=== PATIENT | male | born 1960 | race African-American/Black ===

== ENCOUNTER 2016-11-15 15:07 | Inpatient (IN) | payer OTHER ==
[2016-11-15 19:41] VITALS: BMI 22.1
--- NOTE | 2016-11-15 21:27 | HP ---
COWS - Scale Resting Pulse: 0= ME 80 or Below Sweatin= Chills/Flushing Restless Observation: 3= Extraneous Movement Pupil Size: 0= Normal to Room Light Bone or Joint Aches: 2= Severe Diffuse Aches Runny Nose/ Eye Tearin= Runny Nose/Eyes GI Upset > 30mins: 2= Nausea/Diarrhea Tremor Observation: 2= Slight Tremor Visible Yawning Observation: 0= None Anxiety or Irritability: 2=Irritable/Anxious Goose Flesh Skin: 0=Smooth Skin COWS Score: 14 CIWA Score - CIWA Score Nausea/Vomitin-Mild Nausea/No Vomiting Muscle Tremors: 4-Moderate,w/Arms Extend Anxiety: 4-Mod. Anxious/Guarded Agitation: 4-Moderately Restless Paroxysmal Sweats: 1-Minimal Palms Moist Orientation: 1-Uncertain about Date Tacttile Disturbances: 0-None Auditory Disturbances: 0-None Visual Disturbances: 0-None Headache: 0-None Present CIWA-Ar Total Score: 15 Admission [facility] - HPI Chief Complaint: withdrawal sx Allergies/Adverse Reactions: Allergies Allergy/AdvReac Type Severity Reaction Status Date / Time phenytoin sodium Allergy Hives Verified 11/15/16 20:26 [From Dilantin] phenytoin sodium extended Allergy Hives Verified 11/15/16 20:26 [From Dilantin] History of Present Illness: 56 years old male with long history of alcohol heroin nicotine cocaine dependence has hypertension depression blind right eye and herpes is admitted to detox Exam Limitations: No Limitations - Ebola screening Have you traveled outside of the country in the last 21 days: No Have you had contact with anyone from an Ebola affected area: No Have you been sick,other than usual withdrawal symptoms: No Do you have a fever: No - Review of Systems Constitutional: Loss of Appetite, Changes in sleep, Unintentional Wgt. Loss, Unexplained wgt Loss EENT: reports: Other (blind right eye) Respiratory: reports: No Symptoms reported Cardiac: reports: No Symptoms Reported GI: reports: Nausea, Poor Appetite, Poor Fluid Intake, Abdominal cramping : reports: No Symptoms Reported Musculoskeletal: reports: Back Pain Integumentary: reports: No Symptoms Reported Neuro: reports: Seizure (2006 seizure), Tremors Endocrine: reports: No Symptoms Reported Hematology: reports: No Symptoms Reported Psychiatric: reports: Judgement Intact, Anxious, Depressed Other Systems: Reviewed and Negative Patient History - Patient Medical History Hx Anemia: No Hx Asthma: No Hx Chronic Obstructive Pulmonary Disease (COPD): No Hx Cancer: No Hx Cardiac Disorders: No Hx Congestive Heart Failure: No Hx Hypertension: No Hx Hypercholesterolemia: No Hx Pacemaker: No HX Cerebrovascular Accident: No Hx Seizures: Yes (Last Episode 10/26) Hx Dementia: No Hx Diabetes: No Hx Gastrointestinal Disorders: No Hx Liver Disease: No Hx Genitourinary Disorders: No Hx Sexually Transmitted Disorders: Yes (hepes) Hx Renal Disease (ESRD): No Hx Thyroid Disease: No Hx Human Immunodeficiency Virus (HIV): No Hx Hepatitis C: No Hx Depression: No Hx Suicide Attempt: No Hx Bipolar Disorder: Yes Hx Schizophrenia: No - Patient Surgical History Past Surgical History: No Hx Neurologic Surgery: No Hx Cataract Extraction: No Hx Cardiac Surgery: No Hx Lung Surgery: No Hx Breast Surgery: No Hx Breast Biopsy: No Hx Abdominal Surgery: No Hx Appendectomy: No Hx Cholecystectomy: No Hx Genitourinary Surgery: No Hx Orthopedic Surgery: No (wrist s/p suicide attempt) Other Surgical History: eye 1970, Anesthesia Reaction: No - PPD History Previous Implant?: Yes Documented Results: Negative w/proof Implanted On Prior R Admission?: Yes Date: 01/08/14 PPD to be Administered?: Yes - Smoking Cessation Smoking history: Current every day smoker Have you smoked in the past 12 months: Yes Aproximately how many cigarettes per day: 5 If you are a former smoker, when did you quit?: 30 DAYS AGO Cigars Per Day: 0 Hx Chewing Tobacco Use: No Initiated information on smoking cessation: Yes 'Breaking Loose' booklet given: 11/15/16 - Substance & Tx. History Hx Alcohol Use: Yes Hx Substance Use: Yes Substance Use Type: Alcohol, Cocaine, Heroin Hx Substance Use Treatment: Yes (2013 [facility]) - Substances Abused Alcohol Route: Oral Frequency: Daily Amount used: liquor- 2 pints, beer- 3 six pack Age of first use: 14 Date of Last Use: 11/15/16 Heroin Route: Inhalation Frequency: Daily Amount used: 15 bags Age of first use: 33 Date of Last Use: 11/14/16 Family Disease History - Family Disease History Family Disease History: Other: Father (no contact), Mother (/alcohol) Admission Physical Exam [facility] - Vital Signs Vital Signs: Vital Signs - 24 hr 11/15/16 19:36 Temperature 99.2 F Pulse Rate 77 Respiratory 20 Rate Blood Pressure 148/80 - Physical General Appearance: Yes: Appropriately Dressed, Mild Distress, Thin, Tremorous, Irritable, Sweating, Anxious HEENTM: Yes: Hearing grossly Normal, Normal ENT Inspection, Normocephalic, Normal Voice Respiratory: Yes: Chest Non-Tender, Lungs Clear, Normal Breath Sounds, No Respiratory Distress, No Accessory Muscle Use Neck: Yes: Supple, Trachea in good position Breast: Yes: Breasts Symetrical Cardiology: Yes: Regular Rhythm, Regular Rate, S1, S2 Abdominal: Yes: Non Tender, Soft, Increased Bowel Sounds Genitourinary: Yes: Within Normal Limits Back: Yes: Normal Inspection Musculoskeletal: Yes: full range of Motion, Gait Steady Extremities: Yes: Normal Inspection, Normal Range of Motion, Non-Tender, Tremors Neurological: Yes: survey supervisor II-XII NML intact, Alert, Motor Strength 5/5, Normal Response, Depressed Affect Integumentary: Yes: Warm Lymphatic: Yes: Within Normal Limits - Diagnostic (1) Blind right eye Current Visit: Yes Status: Chronic (2) Essential (primary) hypertension Current Visit: Yes Status: Chronic (3) Nicotine dependence Current Visit: Yes Status: Acute Qualifiers: Nicotine product type: cigarettes Substance use status: in withdrawal Qualified Code(s): F17.213 - Nicotine dependence, cigarettes, with withdrawal; F17.213 - Nicotine dependence, cigarettes, with withdrawal (4) Opioid dependence with withdrawal Current Visit: Yes Status: Acute (5) Alcohol dependence with uncomplicated withdrawal Current Visit: Yes Status: Acute Cleared for Admission [facility] - Detox or Rehab [facility] Level of Care: Medically Managed Detox Regimen/Protocol: Methadone/Librium [facility] Breath Alcohol Content Breath Alcohol Content: 0.022 Urine Drug Screen - Results Drug Screen Negative: No Urine Drug Screen Results: KLAUDIA-Cocaine, OPI-Opiates
[2016-11-15] MEDS ORDERED: MAGNESIUM HYDROX 2400MG/30ML ORAL SUSPENSION 30 ML CUP PO PRN (21:31)
[2016-11-15] MEDS ORDERED: MAG HYDROX/AL HYDROX/SIMETH 30 ML UNIT-DOSE CUP PO PRN (21:31)
[2016-11-15] MEDS ORDERED: diphenhydrAMINE HCL 50 MG CAPSULE PO PRN (21:31)
[2016-11-15] MEDS ORDERED: NICOTINE POLACRILEX 2 MG GUM BC PRN (21:31)
[2016-11-15] MEDS ORDERED: LOPERAMIDE HCL 2 MG CAPSULE PO PRN (21:31)
[2016-11-15] MEDS ORDERED: MENTHOL/PHENOL 1 EACH UD MM PRN (21:31)
[2016-11-15] MEDS ORDERED: MAGNESIUM CITRATE 300 ML BOTTLE PO PRN (21:31)
[2016-11-15] MEDS ORDERED: ACETAMINOPHEN 325 MG TABLET (FP) PO PRN (21:31)
[2016-11-15] MEDS ORDERED: P-EPHED 60MG/TRIPROLIDI 2.5MG TABLET PO PRN (21:31)
[2016-11-15] MEDS ORDERED: chlordiazePOXIDE HCL 25 MG CAPSULE PO PRN ×2 (21:31→23:15)
[2016-11-15] MEDS ORDERED: guaiFENesin/D-METHORPHAN HB 10 ML UNIT-DOSE CUPS PO PRN (21:31)
[2016-11-15] MEDS: THIAMINE HCL 100 MG TABLET (FP) PO SCH (22:58)
[2016-11-15] MEDS ORDERED: chlordiazePOXIDE HCL 25 MG CAPSULE PO SCH (23:00)
[2016-11-15] MEDS ORDERED: METHADONE HCL 10 MG TABLET (FOR DETOX USE ONLY) PO ONE ×2 (23:00→23:15)
[2016-11-15] MEDS: chlordiazePOXIDE HCL 25 MG CAPSULE PO SCH (23:20)
[2016-11-16] MEDS: chlordiazePOXIDE HCL 25 MG CAPSULE PO SCH ×4 (05:10→22:48)
[2016-11-16] MEDS ORDERED: METHADONE HCL 10 MG TABLET (FOR DETOX USE ONLY) PO SCH (10:00)
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
[2016-11-16 10:16] LABS: MCH 32.8 pg (25.7-33.7); MCHC 33.3 g/dl (32.0-35.9); MEAN CELL VOLUME 98.6 fl (80-96); MEAN PLT VOLUME 9.2 fl (7.5-11.1); PLATELET COUNT 162 K/MM3 (134-434); RDW 12.3 % (11.9-15.9); WHITE BLOOD COUNT 4.7 K/mm3 (4.0-10.0)
[2016-11-16] MEDS: valACYclovir HCL 500 MG TABLET (FP) PO SCH (10:23)
[2016-11-16] MEDS: amLODIPine BESYLATE 10 MG TABLET (FP) PO SCH (10:23)
[2016-11-16] MEDS: HYDROCHLOROTHIAZIDE 25 MG TABLET (FP) PO SCH (10:23)
[2016-11-16] MEDS: NICOTINE 14 MG/24 HOURS TOPICAL PATCH TD SCH (10:23)
[2016-11-16] MEDS: PRENATAL VITAMINS W/ FOLIC ACID TABLET (FP) PO SCH (10:23)
[2016-11-16] MEDS: LISINOPRIL 20 MG TABLET (FP) PO SCH (10:23)
[2016-11-16] MEDS: ASPIRIN 81 MG CHEWABLE TABLETS PO SCH (10:23)
[2016-11-16 10:59] LABS: ALBUMIN 3.4 g/dl (3.4-5.0); ALK PHOS 71 U/L (45-117); ANION GAP 7 (8-16); BILIRUBIN,TOTAL 0.5 mg/dL (0.2-1.0); CALCIUM 8.6 mg/dL (8.5-10.1); CO2 32 mmol/L (21-32); CREATININE 2.7 mg/dL (0.7-1.3); GLUCOSE,RANDOM 89 mg/dL (74-106); SGOT/AST 16 U/L (15-37); SGPT/ALT 14 U/L (12-78)
--- NOTE | 2016-11-16 11:41 | PN ---
[facility] CIWA - CIWA Score Nausea/Vomitin-No Nausea/No Vomiting Muscle Tremors: 4-Moderate,w/Arms Extend Anxiety: 4-Mod. Anxious/Guarded Agitation: 4-Moderately Restless Paroxysmal Sweats: 1-Minimal Palms Moist Orientation: 0-Oriented Tacttile Disturbances: 3-Moderate Itch/Numb/Burn Auditory Disturbances: 0-None Visual Disturbances: 0-None Headache: 0-None Present CIWA-Ar Total Score: 16 [facility] COWS - Scale Resting Pulse: 2= [place] 101-120 Sweatin= Chills/Flushing Restless Observation: 3= Extraneous Movement Pupil Size: 0= Normal to Room Light Bone or Joint Aches: 4=Acute Joint/Muscle Pain Runny Nose/ Eye Tearin= Nasal Congestion GI Upset > 30mins: 1= Stomach Cramp Tremor Observation of Outstretched Hands: 1= Tremor Page, Not Seen Yawning Observation: 1= 1-2x During Session Anxiety or Irritability: 1=Feels Anxious/Irritable Goose Flesh Skin: 0=Smooth Skin COWS Score: 15 [facility] Progress Note (SOAP) Subjective: ANXIETY,TREMORS,SWEATS,FATIGUE. Objective: 11/16/16 11:40 Vital Signs Temperature 97.9 F 11/16/16 09:03 Pulse Rate 65 11/16/16 09:03 Respiratory Rate 18 11/16/16 09:03 Blood Pressure 137/86 11/16/16 09:03 O2 Sat by Pulse Oximetry (%) Laboratory Last Values WBC 4.7 K/mm3 (4.0-10.0) 11/16/16 07:15 RBC 3.61 M/mm3 (4.00-5.60) L 11/16/16 07:15 Hgb 11.8 GM/dL (11.7-16.9) 11/16/16 07:15 Hct 35.6 % (35.4-49) 11/16/16 07:15 MCV 98.6 fl (80-96) H 11/16/16 07:15 MCH 32.8 pg (25.7-33.7) 11/16/16 07:15 MCHC 33.3 g/dl (32.0-35.9) 11/16/16 07:15 RDW 12.3 % (11.9-15.9) 11/16/16 07:15 Plt Count 162 K/MM3 (134-434) D 11/16/16 07:15 MPV 9.2 fl (7.5-11.1) D 11/16/16 07:15 Sodium 140 mmol/L (136-145) 11/16/16 07:15 Potassium 3.1 mmol/L (3.5-5.1) L 11/16/16 07:15 Chloride 101 mmol/L (98-107) 11/16/16 07:15 Carbon Dioxide 32 mmol/L (21-32) 11/16/16 07:15 Anion Gap 7 (8-16) L 11/16/16 07:15 BUN 41 mg/dL (7-18) H 11/16/16 07:15 Creatinine 2.7 mg/dL (0.7-1.3) H D 11/16/16 07:15 Creat Clearance w eGFR 24.39 (>60) 11/16/16 07:15 Random Glucose 89 mg/dL (74-106) 11/16/16 07:15 Calcium 8.6 mg/dL (8.5-10.1) 11/16/16 07:15 Total Bilirubin 0.5 mg/dL (0.2-1.0) D 11/16/16 07:15 AST 16 U/L (15-37) 11/16/16 07:15 ALT 14 U/L (12-78) D 11/16/16 07:15 Alkaline Phosphatase 71 U/L (45-117) 11/16/16 07:15 Total Protein 7.0 g/dl (6.4-8.2) 11/16/16 07:15 Albumin 3.4 g/dl (3.4-5.0) 11/16/16 07:15 Assessment: 11/16/16 11:41 WITHDRAWAL SX Plan: CONTINUE DETOX
[2016-11-16 11:49] LABS: HIV 1 & 2 AB NEGATIVE; HIV 1 AGp24 NEGATIVE
--- NOTE | 2016-11-16 14:20 | EKG ---
Test Reason : Blood Pressure : / mmHG Vent. Rate : 079 BPM Atrial Rate : 079 BPM P-R Int : 144 ms QRS Dur : 106 ms QT Int : 400 ms P-R-T Axes : 070 057 033 degrees QTc Int : 458 ms NORMAL SINUS RHYTHM POSSIBLE LEFT ATRIAL ENLARGEMENT INCOMPLETE RIGHT BUNDLE BRANCH BLOCK LEFT VENTRICULAR HYPERTROPHY NONSPECIFIC ST ABNORMALITY ABNORMAL ECG WHEN COMPARED WITH ECG OF 18-JAN-2014 10:25, INCOMPLETE RIGHT BUNDLE BRANCH BLOCK IS NOW PRESENT T WAVE INVERSION NO LONGER EVIDENT IN LATERAL LEADS Confirmed by JUAN MANUEL ALCANTARA MD ([id number]) on 11/16/2016 2:20:14 PM Referred By: Confirmed By:JUAN MANUEL ALCANTARA MD
[2016-11-16 22:12] LABS: URINE APPEARANCE CLEAR; URINE BILIRUBIN NEGATIVE (NEGATIVE); URINE BLOOD NEGATIVE (NEGATIVE); URINE COLOR STRAW; URINE GLUCOSE (UA) NEGATIVE (NEGATIVE); URINE KETONE NEGATIVE (NEGATIVE); URINE NITRITE NEGATIVE (NEGATIVE); URINE PROTEIN NEGATIVE (NEGATIVE); URINE UROBILINOGEN NEGATIVE mg/dL (0.2-1.0)
[2016-11-16] MEDS: THIAMINE HCL 100 MG TABLET (FP) PO SCH (22:48)
[2016-11-16] MEDS: QUEtiapine FUMARATE 50 MG TABLET PO SCH (22:48)
[2016-11-16] MEDS ORDERED: chlordiazePOXIDE HCL 25 MG CAPSULE PO SCH (23:00)
[2016-11-16 23:14] LABS: URINE LEUK ESTERASE Negative (NEGATIVE)
[2016-11-17] MEDS: chlordiazePOXIDE HCL 25 MG CAPSULE PO SCH ×3 (05:21→18:22)
[2016-11-17] MEDS: METHADONE HCL 5 MG TABLET (FOR DETOX USE ONLY) PO SCH (10:30)
[2016-11-17] MEDS: ASPIRIN 81 MG CHEWABLE TABLETS PO SCH (10:30)
[2016-11-17] MEDS: PRENATAL VITAMINS W/ FOLIC ACID TABLET (FP) PO SCH (10:30)
[2016-11-17] MEDS: NICOTINE 14 MG/24 HOURS TOPICAL PATCH TD SCH (10:31)
[2016-11-17] MEDS: amLODIPine BESYLATE 10 MG TABLET (FP) PO SCH (10:31)
[2016-11-17] MEDS: LISINOPRIL 20 MG TABLET (FP) PO SCH (10:31)
[2016-11-17] MEDS: valACYclovir HCL 500 MG TABLET (FP) PO SCH (10:31)
[2016-11-17] MEDS: HYDROCHLOROTHIAZIDE 25 MG TABLET (FP) PO SCH (10:31)
--- NOTE | 2016-11-17 12:26 | PN ---
[facility] CIWA - CIWA Score Nausea/Vomitin-No Nausea/No Vomiting Muscle Tremors: 4-Moderate,w/Arms Extend Anxiety: 4-Mod. Anxious/Guarded Agitation: 4-Moderately Restless Paroxysmal Sweats: 1-Minimal Palms Moist Orientation: 0-Oriented Tacttile Disturbances: 3-Moderate Itch/Numb/Burn Auditory Disturbances: 0-None Visual Disturbances: 0-None Headache: 0-None Present CIWA-Ar Total Score: 16 S COWS - Scale Resting Pulse: 2= [place] 101-120 Sweatin= Chills/Flushing Restless Observation: 3= Extraneous Movement Pupil Size: 2= Moderately Dilated Bone or Joint Aches: 4=Acute Joint/Muscle Pain Runny Nose/ Eye Tearin= Nasal Congestion GI Upset > 30mins: 1= Stomach Cramp Tremor Observation of Outstretched Hands: 2= Slight Tremor Visible Yawning Observation: 2= >3x During Session Anxiety or Irritability: 2=Irritable/Anxious Goose Flesh Skin: 0=Smooth Skin COWS Score: 20 S Progress Note (SOAP) Subjective: ANXIETY,SWEATS,TREMORS,FATIGUE,INTERMITTENT SLEEP Objective: 11/17/16 12:23 Vital Signs Temperature 97.5 F L 11/17/16 09:56 Pulse Rate 61 11/17/16 09:56 Respiratory Rate 18 11/17/16 09:56 Blood Pressure 157/98 11/17/16 09:56 O2 Sat by Pulse Oximetry (%) Laboratory Last Values WBC 4.7 K/mm3 (4.0-10.0) 11/16/16 07:15 RBC 3.61 M/mm3 (4.00-5.60) L 11/16/16 07:15 Hgb 11.8 GM/dL (11.7-16.9) 11/16/16 07:15 Hct 35.6 % (35.4-49) 11/16/16 07:15 MCV 98.6 fl (80-96) H 11/16/16 07:15 MCH 32.8 pg (25.7-33.7) 11/16/16 07:15 MCHC 33.3 g/dl (32.0-35.9) 11/16/16 07:15 RDW 12.3 % (11.9-15.9) 11/16/16 07:15 Plt Count 162 K/MM3 (134-434) D 11/16/16 07:15 MPV 9.2 fl (7.5-11.1) D 11/16/16 07:15 Sodium 140 mmol/L (136-145) 11/16/16 07:15 Potassium 3.1 mmol/L (3.5-5.1) L 11/16/16 07:15 Chloride 101 mmol/L (98-107) 11/16/16 07:15 Carbon Dioxide 32 mmol/L (21-32) 11/16/16 07:15 Anion Gap 7 (8-16) L 11/16/16 07:15 BUN 41 mg/dL (7-18) H 11/16/16 07:15 Creatinine 2.7 mg/dL (0.7-1.3) H D 11/16/16 07:15 Creat Clearance w eGFR 24.39 (>60) 11/16/16 07:15 Random Glucose 89 mg/dL (74-106) 11/16/16 07:15 Calcium 8.6 mg/dL (8.5-10.1) 11/16/16 07:15 Total Bilirubin 0.5 mg/dL (0.2-1.0) D 11/16/16 07:15 AST 16 U/L (15-37) 11/16/16 07:15 ALT 14 U/L (12-78) D 11/16/16 07:15 Alkaline Phosphatase 71 U/L (45-117) 11/16/16 07:15 Total Protein 7.0 g/dl (6.4-8.2) 11/16/16 07:15 Albumin 3.4 g/dl (3.4-5.0) 11/16/16 07:15 Urine Color Straw 11/16/16 21:30 Urine Appearance Clear 11/16/16 21:30 Urine pH 5.0 (5.0-8.0) D 11/16/16 21:30 Ur Specific [place] 1.015 (1.005-1.025) 11/16/16 21:30 Urine Protein Negative (NEGATIVE) 11/16/16 21:30 Urine Glucose (UA) Negative (NEGATIVE) 11/16/16 21:30 Urine Ketones Negative (NEGATIVE) 11/16/16 21:30 Urine Blood Negative (NEGATIVE) 11/16/16 21:30 Urine Nitrite Negative (NEGATIVE) 11/16/16 21:30 Urine Bilirubin Negative (NEGATIVE) 11/16/16 21:30 Urine Urobilinogen Negative mg/dL (0.2-1.0) 11/16/16 21:30 Ur Leukocyte Esterase Negative (NEGATIVE) 11/16/16 21:30 RPR Titer Nonreactive (NONREACTIVE) 11/16/16 07:15 HIV 1&2 Antibody Screen Negative 11/16/16 07:15 HIV P24 Antigen Negative 11/16/16 07:15 K+ = 3.1 Assessment: 11/17/16 12:24 WITHDRAWAL SX HYPOKALEMIA Plan: CONTINUE DETOX KDUR 20 MEQ PO BID, FIRST DOSE NOW.
[2016-11-17] MEDS ORDERED: POTASSIUM CHLORIDE TABS 20 MEQ TABLET.ER (FP) PO ONE (12:48)
[2016-11-17] MEDS ORDERED: TRIMETHOBENZAMIDE HCL 200MG/2ML INJ IM PRN (20:33)
[2016-11-17] MEDS: chlordiazePOXIDE 5 MG CAPSULE PO SCH (22:29)
[2016-11-17] MEDS: THIAMINE HCL 100 MG TABLET (FP) PO SCH (22:29)
[2016-11-17] MEDS: QUEtiapine FUMARATE 50 MG TABLET PO SCH (22:30)
[2016-11-17] MEDS: POTASSIUM CHLORIDE TABS 20 MEQ TABLET.ER (FP) PO SCH (22:30)
[2016-11-17] MEDS ORDERED: chlordiazePOXIDE 5 MG CAPSULE PO SCH (23:00)
[2016-11-18] MEDS: chlordiazePOXIDE 5 MG CAPSULE PO SCH (05:11)
[2016-11-18] MEDS: PRENATAL VITAMINS W/ FOLIC ACID TABLET (FP) PO SCH (09:34)
[2016-11-18] MEDS: NICOTINE 14 MG/24 HOURS TOPICAL PATCH TD SCH (09:34)
[2016-11-18] MEDS: ASPIRIN 81 MG CHEWABLE TABLETS PO SCH (09:35)
[2016-11-18] MEDS: valACYclovir HCL 500 MG TABLET (FP) PO SCH (09:35)
[2016-11-18] MEDS: HYDROCHLOROTHIAZIDE 25 MG TABLET (FP) PO SCH (09:35)
[2016-11-18] MEDS: METHADONE HCL 5 MG TABLET (FOR DETOX USE ONLY) PO SCH (09:35)
[2016-11-18] MEDS: POTASSIUM CHLORIDE TABS 20 MEQ TABLET.ER (FP) PO SCH (09:35)
[2016-11-18] MEDS: LISINOPRIL 20 MG TABLET (FP) PO SCH (09:35)
[2016-11-18 09:36] VITALS: BP 117/92; PULSE 76; TEMP 97.2
[2016-11-18] MEDS: amLODIPine BESYLATE 10 MG TABLET (FP) PO SCH (09:36)
--- NOTE | 2016-11-18 15:05 | DS ---
[facility] Detox Discharge Summary Admission Date: 11/15/16 Discharge Date: 11/18/16 - History Present History: Alcohol Dependence, Opioid Dependence Additional Comments: PATIENT DOES NOT WISH TO STAY TO COMPLETE DETOX REGIMEN. RISKS OF NOT COMPLETING DETOX PROTOCOL EXPLAINED TO PATIENT. PATIENT ADVISED TO FOLLOW-UP WITH [employer] COMMISSIONER (PT. UNABLE TO RECALL U.S. COMMISSIONER'S NAME) ON [address] [place] [address] FOR MEDICAL ASSESSMENT. PRESCRIPTION FOR K-DUR, 20 MEQ DAILY GIVEN TO PATIENT FOR HIM TO TAKE AFTER LEAVING DETOX UNIT UNTIL HE IS ABLE TO GET TO SEE HIS [employer] COMMISSIONER. PT ALSO ADVISED TO GO IMMEDIATELY TO NEAREST ER SHOULD ANY INTOLERABLE DETOX SYMPTOMS DEVELOP AT ANY TIME. PATIENT LEFT DETOX UNIT IN STABLE MEDICAL CONDITION. Pertinent Past History: HTN, Bipolar Disorder, Blindness of Right Eye, Schizoaffective Disorder. - Physical Exam Results Vital Signs: Vital Signs Temperature 97.2 F L 11/18/16 09:35 Pulse Rate 76 11/18/16 09:35 Respiratory Rate 18 11/18/16 09:35 Blood Pressure 117/92 11/18/16 09:35 O2 Sat by Pulse Oximetry (%) Pertinent Admission Physical Exam Findings: WITHDRAWAL SYMPTOMS. Laboratory Tests 11/16/16 11/16/16 11/16/16 07:15 07:15 07:15 WBC 4.7 RBC 3.61 L Hgb 11.8 Hct 35.6 MCV 98.6 H MCH 32.8 MCHC 33.3 RDW 12.3 Plt Count 162 D MPV 9.2 D Sodium 140 Potassium 3.1 L Chloride 101 Carbon Dioxide 32 Anion Gap 7 L BUN 41 H Creatinine 2.7 H D Creat Clearance w eGFR 24.39 Random Glucose 89 Calcium 8.6 Total Bilirubin 0.5 D AST 16 ALT 14 D Alkaline Phosphatase 71 Total Protein 7.0 Albumin 3.4 Urine Color Urine Appearance Urine pH Ur Specific [place] Urine Protein Urine Glucose (UA) Urine Ketones Urine Blood Urine Nitrite Urine Bilirubin Urine Urobilinogen Ur Leukocyte Esterase RPR Titer HIV 1&2 Antibody Screen Negative HIV P24 Antigen Negative 11/16/16 11/16/16 07:15 21:30 WBC RBC Hgb Hct MCV MCH MCHC RDW Plt Count MPV Sodium Potassium Chloride Carbon Dioxide Anion Gap BUN Creatinine Creat Clearance w eGFR Random Glucose Calcium Total Bilirubin AST ALT Alkaline Phosphatase Total Protein Albumin Urine Color Straw Urine Appearance Clear Urine pH 5.0 D Ur Specific [place] 1.015 Urine Protein Negative Urine Glucose (UA) Negative Urine Ketones Negative Urine Blood Negative Urine Nitrite Negative Urine Bilirubin Negative Urine Urobilinogen Negative Ur Leukocyte Esterase Negative RPR Titer Nonreactive HIV 1&2 Antibody Screen HIV P24 Antigen LABS NOTED. - Treatment Hospital Course: Detoxed Safely - Medication Discharge Medications: Ambulatory Orders Amlodipine Besylate [Norvasc -] 10 mg PO DAILY 01/06/14 Nicotine Patch [Nicoderm Patch -] 1 patch TD DAILY 01/18/14 Gabapentin 100 mg PO TID #90 capsule 02/02/14 Lisinopril [Prinivil] 20 mg PO DAILY #30 tablet 02/02/14 Quetiapine Fumarate [Seroquel -] 50 mg PO HS #30 tablet 11/16/16 Aspirin [ASA -] 81 mg PO DAILY #30 tab.chew 11/18/16 Hydrochlorothiazide [Hctz -] 25 mg PO DAILY #30 tablet 11/18/16 Potassium Chloride [K-Dur -] 20 meq PO DAILY #30 tablet.er 11/18/16 - Diagnosis (1) Alcohol dependence with uncomplicated withdrawal Status: Acute (2) Nicotine dependence Status: Chronic Qualifiers: Nicotine product type: cigarettes Substance use status: in withdrawal Qualified Code(s): F17.213 - Nicotine dependence, cigarettes, with withdrawal; F17.213 - Nicotine dependence, cigarettes, with withdrawal (3) Opioid dependence with withdrawal Status: Acute (4) Blind right eye Status: Chronic (5) Essential (primary) hypertension Status: Chronic (6) Schizoaffective disorder Status: Chronic Qualifiers: Schizoaffective disorder type: unspecified Qualified Code(s): F25.9 - Schizoaffective disorder, unspecified; F25.9 - Schizoaffective disorder, unspecified; F25.9 - Schizoaffective disorder, unspecified; F25.9 - Schizoaffective disorder, unspecified - AMA Did Patient Leave Against Medical Advice: Yes (PATIENT DID NOT WISH TO STAY TO COMPLETE DETOX REGIMEN.)
[2016-11-18] MEDS ORDERED: chlordiazePOXIDE HCL 10 MG CAPSULE PO SCH ×2 (23:00)
[2016-11-19] MEDS ORDERED: METHADONE HCL 10 MG TABLET (FOR DETOX USE ONLY) PO SCH (10:00)
[2016-11-20] MEDS ORDERED: METHADONE HCL 5 MG TABLET (FOR DETOX USE ONLY) PO SCH (06:00)
== END 2016-11-18 09:35 | disposition left against medical advice (07) | DRG 770 ==
LOC: YASAS 15:07 → Y3N 21:15
PROVIDERS: ADMIT Internal Medicine; ATTEND Internal Medicine
PROC: HZ2ZZZZ Detoxification Services for Substance Abuse Treatment (ICD-10-PCS; principal; 2016-11-15)
DX: F11.23 Opioid dependence with withdrawal (principal); F10.230 Alcohol dependence with withdrawal, uncomplicated; F14.20 Cocaine dependence, uncomplicated; F17.213 Nicotine dependence, cigarettes, with withdrawal; F25.9 Schizoaffective disorder, unspecified; E87.6 Hypokalemia; I10 Essential (primary) hypertension; H54.40 Blindness, one eye, unspecified eye; Z88.8 Allergy status to other drugs, medicaments and biological substances; Z86.69 Personal history of other diseases of the nervous system and sense organs; Z87.438 Personal history of other diseases of male genital organs; Z91.5 Personal history of self-harm
CPT/HCPCS: 36415; 80053; 81003; 85027; 86593; 87389; 93005; 93010

== ENCOUNTER 2018-06-03 08:56 | Inpatient (IN) | payer OTHER ==
[2018-06-03 09:47] VITALS: BMI 24.3
--- NOTE | 2018-06-03 10:16 | HP ---
COWS - Scale Resting Pulse: 0= [place] 80 or Below Sweatin= Chills/Flushing Restless Observation: 3= Extraneous Movement Pupil Size: 1= Pupils >than Normal Bone or Joint Aches: 2= Severe Diffuse Aches Runny Nose/ Eye Tearin= Runny Nose/Eyes GI Upset > 30mins: 2= Nausea/Diarrhea Tremor Observation: 2= Slight Tremor Visible Yawning Observation: 1= 1-2x During Session Anxiety or Irritability: 2=Irritable/Anxious Goose Flesh Skin: 0=Smooth Skin COWS Score: 16 CIWA Score Nausea/Vomitin Muscle Tremors: 2 Anxiety: 2 Agitation: 2 Paroxysmal Sweats: 2 Orientation: 1-Uncertain about Date Tacttile Disturbances: 0-None Auditory Disturbances: 1-Very Mild Visual Disturbances: 1-Very Mild Sensitivity Headache: 2-Mild CIWA-Ar Total Score: 15 - Admission Criteria [facility]ASAS Guidelines: Admission for Medically Managed Detox: Requires at least one of the followin. CIWA greater than 12 2. Seizures within the past 24 hours 3. Delirium tremens within the past 24 hours 4. Hallucinations within the past 24 hours 5. Acute intervention needed for co occurring medical disorder 6. Acute intervention needed for co occurring psychiatric disorder 7. Severe withdrawal that cannot be handled at a lower level of care (continued vomiting, continued diarrhea, abnormal vital signs) requiring intravenous medication and/or fluids 8. Admission ROS S - HPI Chief Complaint: i need help to stop using heroin,alcohol, Allergies/Adverse Reactions: Allergies Allergy/AdvReac Type Severity Reaction Status Date / Time Fish Containing Products Allergy Verified 06/03/18 09:27 phenytoin sodium Allergy Hives Verified 06/03/18 09:27 [From Dilantin] phenytoin sodium extended Allergy Hives Verified 06/03/18 09:27 [From Dilantin] History of Present Illness: this 57 years old male with heroin,alcohol dependence seeking detox,withdrawal symptom, last detox detox at [facility] to 08/20/17 but keep relapsing history of hypertension on med nicotine dependence 5 cigarette/day,requesting nicotine patch and gum weight loss longest period of sobriety 8 years insomnia Exam Limitations: No Limitations - Ebola screening Have you traveled outside of the country in the last 21 days: No Have you had contact with anyone from an Ebola affected area: No Do you have a fever: No - Review of Systems Constitutional: Loss of Appetite, Malaise, Night Sweats, Changes in sleep, Weakness, Unintentional Wgt. Loss EENT: reports: Tearing, Nose Congestion Respiratory: reports: No Symptoms reported Cardiac: reports: No Symptoms Reported GI: reports: Diarrhea, Nausea, Vomiting, Abdominal cramping : reports: No Symptoms Reported Musculoskeletal: reports: Back Pain, Joint Pain, Joint Stiffness Integumentary: reports: Dryness Neuro: reports: Headache, Tremors Endocrine: reports: No Symptoms Reported Hematology: reports: No Symptoms Reported Psychiatric: reports: No Sypmtoms Reported, Judgement Intact, Mood/Affect Appropiate, Orientated x3, other (insomnia) Other Systems: Reviewed and Negative Patient History - Patient Medical History Hx Anemia: No Hx Asthma: No Hx Chronic Obstructive Pulmonary Disease (COPD): No Hx Cancer: No Hx Cardiac Disorders: No Hx Congestive Heart Failure: No Hx Hypertension: Yes (ON MEDICATION) Hx Hypercholesterolemia: No Hx Pacemaker: No HX Cerebrovascular Accident: No Hx Seizures: Yes (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) Hx Dementia: No Hx Diabetes: No Hx Gastrointestinal Disorders: No Hx Liver Disease: No Hx Genitourinary Disorders: No Hx Sexually Transmitted Disorders: Yes (herpes) Hx Renal Disease (ESRD): No Hx Thyroid Disease: No Hx Human Immunodeficiency Virus (HIV): No (last 04/02 negative) Hx Hepatitis C: No Hx Depression: Yes Hx Suicide Attempt: No Hx Bipolar Disorder: Yes (no medication) Hx Schizophrenia: No Other Medical History: no suicidal,no homicidal - Patient Surgical History Past Surgical History: Yes Hx Neurologic Surgery: No Hx Cataract Extraction: No Hx Cardiac Surgery: No Hx Lung Surgery: No Hx Breast Surgery: No Hx Breast Biopsy: No Hx Abdominal Surgery: No Hx Appendectomy: Yes (in 1982) Hx Cholecystectomy: No Hx Genitourinary Surgery: No Hx Section: No Hx Orthopedic Surgery: Yes (wrist s/p suicide attempt in 1984) Other Surgical History: eye 1969, right in 1969 Anesthesia Reaction: No - PPD History Previous Implant?: Yes Documented Results: Negative w/o proof Implanted On Prior R Admission?: Yes Date: 11/17/16 Results: negative PPD to be Administered?: Yes - Smoking Cessation Smoking history: Current every day smoker Have you smoked in the past 12 months: Yes Aproximately how many cigarettes per day: 5 If you are a former smoker, when did you quit?: 30 DAYS AGO Cigars Per Day: 0 Hx Chewing Tobacco Use: No Initiated information on smoking cessation: Yes 'Breaking Loose' booklet given: 06/03/18 - Substance & Tx. History Hx Alcohol Use: Yes Hx Substance Use: Yes Substance Use Type: Alcohol, Heroin Hx Substance Use Treatment: Yes ([facility] 08/16/17 to 08/20/17) - Substances abused Alcohol Substance route: Oral Frequency: Daily Amount used: 2pt. vodka, 2 six pks beer ( 16 oz ) Age of first use: 6 Date of last use: 06/02/18 Heroin Substance route: Inhalation Frequency: Daily Amount used: 15 bags Age of first use: 33 Date of last use: 06/02/18 Family Disease History - Family Disease History Family Disease History: Other: Father (no contact), Mother (/alcohol), Brother (alcohol), Sister (alcohol) Admission Physical Exam [facility] - Vital Signs Vital Signs: Vital Signs - 24 hr 06/03/18 09:22 Temperature 98 F Pulse Rate 69 Respiratory 18 Rate Blood Pressure 160/85 - Physical General Appearance: Yes: Moderate Distress, Tremorous, Irritable, Sweating, Anxious HEENTM: Yes: Pharynx Normal, Other (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) Respiratory: Yes: Lungs Clear, Normal Breath Sounds, No Respiratory Distress Neck: Yes: Within Normal Limits, Supple, Trachea in good position Breast: Yes: Within Normal Limits Cardiology: Yes: Within Normal Limits, Regular Rhythm, Regular Rate, S1, S2 Abdominal: Yes: Within Normal Limits, Normal Bowel Sounds, Non Tender, Flat, Soft Genitourinary: Yes: Within Normal Limits Back: Yes: Muscle Spasm Musculoskeletal: Yes: Back pain, Joint Stiffness, Muscle Pain Extremities: Yes: Within Normal Limits, Normal Range of Motion, Tremors Neurological: Yes: cigar packer II-XII NML intact, Fully Oriented, Alert, Motor Strength 5/5 Integumentary: Yes: Dry Lymphatic: Yes: Within Normal Limits - Diagnostic (1) Opioid dependence with withdrawal Current Visit: No Status: Acute (2) Alcohol dependence with uncomplicated withdrawal Current Visit: No Status: Acute (3) Insomnia Current Visit: No Status: Acute (4) Nicotine dependence Current Visit: No Status: Acute Qualifiers: Nicotine product type: cigarettes Substance use status: in withdrawal Qualified Code(s): F17.213 - Nicotine dependence, cigarettes, with withdrawal (5) Essential (primary) hypertension Current Visit: No Status: Chronic (6) Seizure Current Visit: No Status: Suspected (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
[2018-06-03] MEDS ORDERED: ACETAMINOPHEN 325 MG TABLET (FP) PO PRN ×2 (10:26)
[2018-06-03] MEDS ORDERED: BISMUTH SUBSALICYLATE 262 MG/15 ML BTL PO PRN (10:26)
[2018-06-03] MEDS ORDERED: hydrOXYzine PAMOATE 25 MG CAPSULE (FP) PO PRN (10:26)
[2018-06-03] MEDS ORDERED: MAGNESIUM HYDROX 2400MG/30ML ORAL SUSPENSION 30 ML CUP PO PRN (10:26)
[2018-06-03] MEDS ORDERED: NICOTINE POLACRILEX 2 MG GUM BUC PRN (10:26)
[2018-06-03] MEDS ORDERED: MAGNESIUM CITRATE 300 ML BOTTLE PO PRN (10:26)
[2018-06-03] MEDS ORDERED: cloNIDine HCL 0.1 MG TABLET PO PRN (10:26)
[2018-06-03] MEDS ORDERED: MENTHOL/PHENOL 1 EACH UD MM PRN (10:26)
[2018-06-03] MEDS ORDERED: MAG HYDROX/AL HYDROX/SIMETH 30 ML UNIT-DOSE CUP PO PRN (10:26)
[2018-06-03] MEDS ORDERED: METHADONE HCL 10 MG TABLET (FOR DETOX USE ONLY) PO ONE ×2 (10:29→23:00)
[2018-06-03] MEDS ORDERED: chlordiazePOXIDE HCL 25 MG CAPSULE PO PRN (10:30)
[2018-06-03] MEDS: ASPIRIN 81 MG CHEWABLE TABLETS PO SCH (12:03)
[2018-06-03] MEDS: HYDROCHLOROTHIAZIDE 25 MG TABLET (FP) PO SCH (12:04)
[2018-06-03] MEDS: chlordiazePOXIDE HCL 25 MG CAPSULE PO SCH ×3 (12:04→22:18)
[2018-06-03] MEDS: LISINOPRIL 20 MG TABLET (FP) PO SCH (12:04)
[2018-06-03] MEDS: amLODIPine BESYLATE 10 MG TABLET (FP) PO SCH (12:04)
[2018-06-03] MEDS: NICOTINE 21 MG/24 HOURS TOPICAL PATCH TD SCH (12:11)
[2018-06-03] MEDS: LABETALOL HCL 100 MG TABLET (FP) PO SCH ×2 (13:00→22:22)
[2018-06-03 14:45] LABS: ALBUMIN 3.7 g/dl (3.4-5.0); ALK PHOS 90 U/L (45-117); ANION GAP 5 MMOL/L (8-16); BILIRUBIN,TOTAL 0.8 mg/dL (0.2-1); BLOOD UREA NITROGEN 29 mg/dL (7-18); CALCIUM 8.9 mg/dL (8.5-10.1); CHLORIDE 102 mmol/L (98-107); CO2 35 mmol/L (21-32); CREATININE 2.1 mg/dL (0.55-1.3); GLUCOSE,RANDOM 145 mg/dL (74-106); POTASSIUM 3.7 mmol/L (3.5-5.1); SGOT/AST 28 U/L (15-37); SGPT/ALT 23 U/L (13-61); SODIUM 141 mmol/L (136-145); TOT PROT 7.3 g/dl (6.4-8.2)
[2018-06-03 15:05] LABS: HEMATOCRIT 30.8 % (35.4-49); HEMOGLOBIN 10.2 GM/dL (11.7-16.9); MCH 31.6 pg (25.7-33.7); MCHC 33.3 g/dl (32.0-35.9); MEAN PLT VOLUME 9.3 fl (7.5-11.1); PLATELET COUNT 161 K/MM3 (134-434); RBC 3.24 M/mm3 (4.00-5.60)
[2018-06-03 18:32] LABS: URINE APPEARANCE CLEAR; URINE BILIRUBIN NEGATIVE (NEGATIVE); URINE COLOR YELLOW; URINE GLUCOSE (UA) NEGATIVE (NEGATIVE); URINE KETONE TRACE (NEGATIVE); URINE LEUK ESTERASE NEGATIVE (NEGATIVE); URINE NITRITE NEGATIVE (NEGATIVE); URINE PROTEIN TRACE (NEGATIVE)
[2018-06-03] MEDS: THIAMINE HCL 100 MG TABLET (FP) PO SCH (22:18)
[2018-06-03] MEDS: METHOCARBAMOL 500 MG TABLET PO PRN (22:22)
[2018-06-04] MEDS: chlordiazePOXIDE HCL 25 MG CAPSULE PO SCH ×4 (05:40→22:05)
[2018-06-04] MEDS ORDERED: METHADONE HCL 10 MG TABLET (FOR DETOX USE ONLY) PO ONE (10:00)
[2018-06-04] MEDS: NICOTINE 21 MG/24 HOURS TOPICAL PATCH TD SCH (10:12)
[2018-06-04] MEDS: LISINOPRIL 20 MG TABLET (FP) PO SCH (10:13)
[2018-06-04] MEDS: LABETALOL HCL 100 MG TABLET (FP) PO SCH ×2 (10:13→22:05)
[2018-06-04] MEDS: PRENATAL VITAMINS W/ FOLIC ACID TABLET (FP) PO SCH (10:13)
[2018-06-04] MEDS: ASPIRIN 81 MG CHEWABLE TABLETS PO SCH (10:13)
[2018-06-04] MEDS: amLODIPine BESYLATE 10 MG TABLET (FP) PO SCH (10:13)
[2018-06-04] MEDS: HYDROCHLOROTHIAZIDE 25 MG TABLET (FP) PO SCH (10:13)
--- NOTE | 2018-06-04 11:26 | PN ---
[facility] CIWA - CIWA Score Nausea/Vomitin-No Nausea/No Vomiting Muscle Tremors: 3 Anxiety: 3 Agitation: 3 Paroxysmal Sweats: 3 Orientation: 0-Oriented Tacttile Disturbances: 0-None Auditory Disturbances: 0-None Visual Disturbances: 0-None Headache: 0-None Present CIWA-Ar Total Score: 12 BHS COWS - Scale Resting Pulse: 0= [place] 80 or Below Sweatin= Chills/Flushing Restless Observation: 1= Difficult to Sit Still Pupil Size: 0= Normal to Room Light Bone or Joint Aches: 1= Mild Discomfort Runny Nose/ Eye Tearin= Runny Nose/Eyes GI Upset > 30mins: 0= None Tremor Observation of Outstretched Hands: 2= Slight Tremor Visible Yawning Observation: 1= 1-2x During Session Anxiety or Irritability: 2=Irritable/Anxious Goose Flesh Skin: 0=Smooth Skin COWS Score: 10 [facility] Progress Note (SOAP) Subjective: sweats shakes interrupted sleep body aches irritable Objective: 06/04/18 11:24 Vital Signs Temperature 98.2 F 06/04/18 06:32 Pulse Rate 72 06/04/18 06:32 Respiratory Rate 18 06/04/18 06:32 Blood Pressure 144/78 06/04/18 06:32 O2 Sat by Pulse Oximetry (%) Laboratory Tests 06/03/18 06/03/18 06/03/18 10:45 10:45 10:45 WBC 7.0 RBC 3.24 L Hgb 10.2 L Hct 30.8 L MCV 95.0 MCH 31.6 MCHC 33.3 RDW 13.0 Plt Count 161 MPV 9.3 Sodium 141 Potassium 3.7 Chloride 102 Carbon Dioxide 35 H Anion Gap 5 L BUN 29 H Creatinine 2.1 H Creat Clearance w eGFR 32.49 Random Glucose 145 H Calcium 8.9 Total Bilirubin 0.8 AST 28 ALT 23 Alkaline Phosphatase 90 Total Protein 7.3 Albumin 3.7 Urine Color Urine Appearance Urine pH Ur Specific [place] Urine Protein Urine Glucose (UA) Urine Ketones Urine Blood Urine Nitrite Urine Bilirubin Urine Urobilinogen Ur Leukocyte Esterase RPR Titer Nonreactive HIV 1&2 Antibody Screen HIV P24 Antigen 06/03/18 06/03/18 10:45 14:00 WBC RBC Hgb Hct MCV MCH MCHC RDW Plt Count MPV Sodium Potassium Chloride Carbon Dioxide Anion Gap BUN Creatinine Creat Clearance w eGFR Random Glucose Calcium Total Bilirubin AST ALT Alkaline Phosphatase Total Protein Albumin Urine Color Yellow Urine Appearance Clear Urine pH 6.0 Ur Specific [place] 1.020 Urine Protein Trace Urine Glucose (UA) Negative Urine Ketones Trace H Urine Blood Negative Urine Nitrite Negative Urine Bilirubin Negative Urine Urobilinogen 1.0 Ur Leukocyte Esterase Negative RPR Titer HIV 1&2 Antibody Screen Negative HIV P24 Antigen Negative aaox3 ambulating no acute distress Assessment: 06/04/18 11:26 Plan: continue detox increase fluids
[2018-06-04] MEDS: METHOCARBAMOL 500 MG TABLET PO PRN (17:38)
[2018-06-04] MEDS: THIAMINE HCL 100 MG TABLET (FP) PO SCH (22:05)
[2018-06-05] MEDS: MELATONIN 5 MG TABLETS PO PRN ×2 (01:13→22:02)
[2018-06-05] MEDS: chlordiazePOXIDE HCL 25 MG CAPSULE PO SCH (06:22)
[2018-06-05] MEDS ORDERED: METHADONE HCL 10 MG TABLET (FOR DETOX USE ONLY) PO ONE (10:00)
[2018-06-05] MEDS ORDERED: chlordiazePOXIDE HCL 10 MG CAPSULE PO PRN (11:00)
--- NOTE | 2018-06-05 11:02 | PN ---
S CIWA - CIWA Score Nausea/Vomitin-Mild Nausea/No Vomiting Muscle Tremors: 2 Anxiety: 1-Mildly Anxious Agitation: 1-Slight > Activity Paroxysmal Sweats: 1-Minimal Palms Moist Orientation: 0-Oriented Tacttile Disturbances: 0-None Auditory Disturbances: 0-None Visual Disturbances: 0-None Headache: 0-None Present CIWA-Ar Total Score: 6 BHS COWS - Scale Resting Pulse: 0= [place] 80 or Below Sweatin= Chills/Flushing Restless Observation: 1= Difficult to Sit Still Pupil Size: 1= Pupils >than Normal Bone or Joint Aches: 1= Mild Discomfort Runny Nose/ Eye Tearin= Nasal Congestion GI Upset > 30mins: 1= Stomach Cramp Tremor Observation of Outstretched Hands: 1= Tremor [place], Not Seen Yawning Observation: 0= None Anxiety or Irritability: 1=Feels Anxious/Irritable Goose Flesh Skin: 0=Smooth Skin COWS Score: 8 S Progress Note (SOAP) Subjective: pt states he is feeling Ok on detox protocols day #2 O: Vital Signs - 24 hr 06/04/18 06/04/18 06/04/18 13:07 17:07 21:42 Temperature 98.2 F 98.1 F 98.2 F Pulse Rate 81 78 85 Respiratory 18 19 16 Rate Blood Pressure 138/74 118/67 121/75 06/05/18 06/05/18 06/05/18 00:30 03:00 10:21 Temperature 98.4 F 98.8 F Pulse Rate 78 78 Respiratory 20 18 18 Rate Blood Pressure 151/83 137/72 Laboratory Tests 06/03/18 06/03/18 06/03/18 10:45 10:45 10:45 WBC 7.0 RBC 3.24 L Hgb 10.2 L Hct 30.8 L MCV 95.0 MCH 31.6 MCHC 33.3 RDW 13.0 Plt Count 161 MPV 9.3 Sodium 141 Potassium 3.7 Chloride 102 Carbon Dioxide 35 H Anion Gap 5 L BUN 29 H Creatinine 2.1 H Creat Clearance w eGFR 32.49 Random Glucose 145 H Calcium 8.9 Total Bilirubin 0.8 AST 28 ALT 23 Alkaline Phosphatase 90 Total Protein 7.3 Albumin 3.7 Urine Color Urine Appearance Urine pH Ur Specific [place] Urine Protein Urine Glucose (UA) Urine Ketones Urine Blood Urine Nitrite Urine Bilirubin Urine Urobilinogen Ur Leukocyte Esterase RPR Titer Nonreactive HIV 1&2 Antibody Screen HIV P24 Antigen 06/03/18 06/03/18 10:45 14:00 WBC RBC Hgb Hct MCV MCH MCHC RDW Plt Count MPV Sodium Potassium Chloride Carbon Dioxide Anion Gap BUN Creatinine Creat Clearance w eGFR Random Glucose Calcium Total Bilirubin AST ALT Alkaline Phosphatase Total Protein Albumin Urine Color Yellow Urine Appearance Clear Urine pH 6.0 Ur Specific [place] 1.020 Urine Protein Trace Urine Glucose (UA) Negative Urine Ketones Trace H Urine Blood Negative Urine Nitrite Negative Urine Bilirubin Negative Urine Urobilinogen 1.0 Ur Leukocyte Esterase Negative RPR Titer HIV 1&2 Antibody Screen Negative HIV P24 Antigen Negative anemia low renal function- high Cr, GFR 35 a/p continue alcohol and heroin detox protocols renal dysfunction anemia: f/u PCP
[2018-06-05] MEDS: chlordiazePOXIDE HCL 10 MG CAPSULE PO SCH ×3 (11:37→22:02)
[2018-06-05] MEDS: ASPIRIN 81 MG CHEWABLE TABLETS PO SCH (11:37)
[2018-06-05] MEDS: PRENATAL VITAMINS W/ FOLIC ACID TABLET (FP) PO SCH (11:38)
[2018-06-05] MEDS: HYDROCHLOROTHIAZIDE 25 MG TABLET (FP) PO SCH (11:38)
[2018-06-05] MEDS: amLODIPine BESYLATE 10 MG TABLET (FP) PO SCH (11:38)
[2018-06-05] MEDS: LISINOPRIL 20 MG TABLET (FP) PO SCH (11:38)
[2018-06-05] MEDS: NICOTINE 21 MG/24 HOURS TOPICAL PATCH TD SCH (11:43)
[2018-06-05] MEDS: LABETALOL HCL 100 MG TABLET (FP) PO SCH ×2 (11:52→22:02)
[2018-06-05] MEDS: METHOCARBAMOL 500 MG TABLET PO PRN (17:56)
[2018-06-05] MEDS: THIAMINE HCL 100 MG TABLET (FP) PO SCH (22:02)
[2018-06-05] MEDS: IBUPROFEN 400 MG TABLET (FP) PO PRN (22:04)
[2018-06-06] MEDS: chlordiazePOXIDE HCL 10 MG CAPSULE PO SCH ×3 (05:16→22:00)
[2018-06-06] MEDS ORDERED: METHADONE HCL 10 MG TABLET (FOR DETOX USE ONLY) ONE (09:29)
[2018-06-06] MEDS ORDERED: METHADONE HCL 5 MG TABLET (FOR DETOX USE ONLY) ONE (09:29)
[2018-06-06] MEDS ORDERED: METHADONE HCL 10 MG TABLET (FOR DETOX USE ONLY) PO ONE (10:00)
[2018-06-06] MEDS ORDERED: METHADONE (DETOX) 10 MG, METHADONE (DETOX) 5 MG PO ONE (10:00)
[2018-06-06] MEDS: ASPIRIN 81 MG CHEWABLE TABLETS PO SCH (10:24)
[2018-06-06] MEDS: PRENATAL VITAMINS W/ FOLIC ACID TABLET (FP) PO SCH (10:24)
[2018-06-06] MEDS: amLODIPine BESYLATE 10 MG TABLET (FP) PO SCH (10:24)
[2018-06-06] MEDS: LISINOPRIL 20 MG TABLET (FP) PO SCH (10:24)
[2018-06-06] MEDS: HYDROCHLOROTHIAZIDE 25 MG TABLET (FP) PO SCH (10:25)
[2018-06-06] MEDS: METHOCARBAMOL 500 MG TABLET PO PRN ×2 (10:29→22:01)
[2018-06-06] MEDS: NICOTINE 21 MG/24 HOURS TOPICAL PATCH TD SCH (10:29)
[2018-06-06] MEDS: LABETALOL HCL 100 MG TABLET (FP) PO SCH ×2 (10:29→22:00)
--- NOTE | 2018-06-06 14:13 | PN ---
S CIWA - CIWA Score Nausea/Vomitin-No Nausea/No Vomiting Muscle Tremors: 2 Anxiety: 1-Mildly Anxious Agitation: 2 Paroxysmal Sweats: 2 Orientation: 0-Oriented Tacttile Disturbances: 0-None Auditory Disturbances: 0-None Visual Disturbances: 0-None Headache: 0-None Present CIWA-Ar Total Score: 7 BHS COWS - Scale Resting Pulse: 0= [place] 80 or Below Sweatin=Flushed/Facial Moisture Restless Observation: 0= Sits Still Pupil Size: 0= Normal to Room Light Bone or Joint Aches: 1= Mild Discomfort Runny Nose/ Eye Tearin= Nasal Congestion GI Upset > 30mins: 0= None Tremor Observation of Outstretched Hands: 1= Tremor [place], Not Seen Yawning Observation: 1= 1-2x During Session Anxiety or Irritability: 2=Irritable/Anxious Goose Flesh Skin: 0=Smooth Skin COWS Score: 8 S Progress Note (SOAP) Subjective: sweats mild shakes interrupted sleep body aches Objective: 06/06/18 14:12 Vital Signs Temperature 97.9 F 06/06/18 09:04 Pulse Rate 80 06/06/18 09:04 Respiratory Rate 18 06/06/18 09:04 Blood Pressure 138/73 06/06/18 09:04 O2 Sat by Pulse Oximetry (%) Laboratory Tests 06/03/18 06/03/18 06/03/18 10:45 10:45 10:45 WBC 7.0 RBC 3.24 L Hgb 10.2 L Hct 30.8 L MCV 95.0 MCH 31.6 MCHC 33.3 RDW 13.0 Plt Count 161 MPV 9.3 Sodium 141 Potassium 3.7 Chloride 102 Carbon Dioxide 35 H Anion Gap 5 L BUN 29 H Creatinine 2.1 H Creat Clearance w eGFR 32.49 Random Glucose 145 H Calcium 8.9 Total Bilirubin 0.8 AST 28 ALT 23 Alkaline Phosphatase 90 Total Protein 7.3 Albumin 3.7 Urine Color Urine Appearance Urine pH Ur Specific [place] Urine Protein Urine Glucose (UA) Urine Ketones Urine Blood Urine Nitrite Urine Bilirubin Urine Urobilinogen Ur Leukocyte Esterase RPR Titer Nonreactive HIV 1&2 Antibody Screen HIV P24 Antigen 06/03/18 06/03/18 10:45 14:00 WBC RBC Hgb Hct MCV MCH MCHC RDW Plt Count MPV Sodium Potassium Chloride Carbon Dioxide Anion Gap BUN Creatinine Creat Clearance w eGFR Random Glucose Calcium Total Bilirubin AST ALT Alkaline Phosphatase Total Protein Albumin Urine Color Yellow Urine Appearance Clear Urine pH 6.0 Ur Specific [place] 1.020 Urine Protein Trace Urine Glucose (UA) Negative Urine Ketones Trace H Urine Blood Negative Urine Nitrite Negative Urine Bilirubin Negative Urine Urobilinogen 1.0 Ur Leukocyte Esterase Negative RPR Titer HIV 1&2 Antibody Screen Negative HIV P24 Antigen Negative aaox3 ambulating no acute distress Assessment: 06/06/18 14:12 withdrawal sx Plan: continue detox increase fluids
[2018-06-06] MEDS: THIAMINE HCL 100 MG TABLET (FP) PO SCH (22:03)
[2018-06-07] MEDS ORDERED: METHADONE HCL 5 MG TABLET (FOR DETOX USE ONLY) PO ONE (06:00)
[2018-06-07] MEDS ORDERED: METHADONE HCL 10 MG TABLET (FOR DETOX USE ONLY) PO ONE (10:00)
[2018-06-07] MEDS: chlordiazePOXIDE HCL 10 MG CAPSULE PO SCH (10:44)
[2018-06-07] MEDS: ASPIRIN 81 MG CHEWABLE TABLETS PO SCH (10:44)
[2018-06-07] MEDS: LISINOPRIL 20 MG TABLET (FP) PO SCH (10:45)
[2018-06-07] MEDS: HYDROCHLOROTHIAZIDE 25 MG TABLET (FP) PO SCH (10:45)
[2018-06-07] MEDS: amLODIPine BESYLATE 10 MG TABLET (FP) PO SCH (10:45)
[2018-06-07] MEDS: LABETALOL HCL 100 MG TABLET (FP) PO SCH (10:45)
[2018-06-07] MEDS: PRENATAL VITAMINS W/ FOLIC ACID TABLET (FP) PO SCH (10:46)
[2018-06-07] MEDS: NICOTINE 21 MG/24 HOURS TOPICAL PATCH TD SCH (10:48)
[2018-06-07] MEDS: METHOCARBAMOL 500 MG TABLET PO PRN (10:50)
[2018-06-07] MEDS: IBUPROFEN 400 MG TABLET (FP) PO PRN (10:50)
[2018-06-07 13:02] VITALS: BP 142/84; PULSE 81; TEMP 97.9
--- NOTE | 2018-06-07 14:14 | PN ---
[facility] CIWA - CIWA Score Nausea/Vomitin-No Nausea/No Vomiting Muscle Tremors: None Anxiety: 0-No Anxiety, at Ease Agitation: 0-Normal Activity Paroxysmal Sweats: No Perspiration Orientation: 0-Oriented Tacttile Disturbances: 0-None Auditory Disturbances: 0-None Visual Disturbances: 0-None Headache: 0-None Present CIWA-Ar Total Score: 0 [facility] COWS - Scale Resting Pulse: 0= [place] 80 or Below Sweatin= No chills or Flushing Restless Observation: 1= Difficult to Sit Still Bone or Joint Aches: 1= Mild Discomfort Runny Nose/ Eye Tearin= None GI Upset > 30mins: 0= None Tremor Observation of Outstretched Hands: 0= None Yawning Observation: 0= None Anxiety or Irritability: 0= None Goose Flesh Skin: 0=Smooth Skin [facility] Progress Note (SOAP) Subjective: pt completing detox protocols- last dose of methadone 5mg tomorrow, would like to go to rehab today if possible, counselor will look for bed O: Vital Signs - 24 hr 06/06/18 06/06/18 06/06/18 14:26 17:00 21:42 Temperature 99.0 F 98.2 F 98.6 F Pulse Rate 77 74 88 Respiratory 18 18 18 Rate Blood Pressure 128/79 122/69 153/85 06/07/18 06/07/18 06/07/18 00:30 03:30 06:00 Temperature 98.2 F Pulse Rate 75 Respiratory 18 18 18 Rate Blood Pressure 140/85 06/07/18 06/07/18 09:06 13:01 Temperature 98.6 F 97.9 F Pulse Rate 83 81 Respiratory 18 18 Rate Blood Pressure 139/77 142/84 Laboratory Tests 06/03/18 06/03/18 06/03/18 10:45 10:45 10:45 WBC 7.0 RBC 3.24 L Hgb 10.2 L Hct 30.8 L MCV 95.0 MCH 31.6 MCHC 33.3 RDW 13.0 Plt Count 161 MPV 9.3 Sodium 141 Potassium 3.7 Chloride 102 Carbon Dioxide 35 H Anion Gap 5 L BUN 29 H Creatinine 2.1 H Creat Clearance w eGFR 32.49 Random Glucose 145 H Calcium 8.9 Total Bilirubin 0.8 AST 28 ALT 23 Alkaline Phosphatase 90 Total Protein 7.3 Albumin 3.7 Urine Color Urine Appearance Urine pH Ur Specific [place] Urine Protein Urine Glucose (UA) Urine Ketones Urine Blood Urine Nitrite Urine Bilirubin Urine Urobilinogen Ur Leukocyte Esterase RPR Titer Nonreactive HIV 1&2 Antibody Screen HIV P24 Antigen 06/03/18 06/03/18 10:45 14:00 WBC RBC Hgb Hct MCV MCH MCHC RDW Plt Count MPV Sodium Potassium Chloride Carbon Dioxide Anion Gap BUN Creatinine Creat Clearance w eGFR Random Glucose Calcium Total Bilirubin AST ALT Alkaline Phosphatase Total Protein Albumin Urine Color Yellow Urine Appearance Clear Urine pH 6.0 Ur Specific [place] 1.020 Urine Protein Trace Urine Glucose (UA) Negative Urine Ketones Trace H Urine Blood Negative Urine Nitrite Negative Urine Bilirubin Negative Urine Urobilinogen 1.0 Ur Leukocyte Esterase Negative RPR Titer HIV 1&2 Antibody Screen Negative HIV P24 Antigen Negative anemia, increased Cr- renal compromise a/p:continue detox protocols, discharge to rehab when possible
[2018-06-08] MEDS ORDERED: METHADONE HCL 5 MG TABLET (FOR DETOX USE ONLY) PO ONE (06:00)
== END 2018-06-07 15:10 | disposition other institution (70) | DRG 773 ==
LOC: YASAS 08:56 → Y6N 10:46
PROVIDERS: ADMIT Surgery; ATTEND Surgery
PROC: HZ2ZZZZ Detoxification Services for Substance Abuse Treatment (ICD-10-PCS; principal; 2018-06-03)
DX: F11.23 Opioid dependence with withdrawal (principal); F10.230 Alcohol dependence with withdrawal, uncomplicated; F17.213 Nicotine dependence, cigarettes, with withdrawal; F31.9 Bipolar disorder, unspecified; I10 Essential (primary) hypertension; D64.9 Anemia, unspecified; Z86.19 Personal history of other infectious and parasitic diseases; Z86.69 Personal history of other diseases of the nervous system and sense organs; Z91.013 Allergy to seafood; Z88.8 Allergy status to other drugs, medicaments and biological substances
CPT/HCPCS: 36415; 80053; 81003; 85027; 86593; 87389; J0735

== ENCOUNTER 2018-06-07 15:21 | Inpatient (IN) | payer OTHER ==
[2018-06-07] MEDS ORDERED: NICOTINE POLACRILEX 2 MG GUM BUC PRN (15:55)
[2018-06-07] MEDS ORDERED: MENTHOL/PHENOL 1 EACH UD MM PRN (15:55)
[2018-06-07] MEDS ORDERED: P-EPHED 60MG/TRIPROLIDI 2.5MG TABLET PO PRN (15:55)
[2018-06-07] MEDS ORDERED: LOPERAMIDE HCL 2 MG CAPSULE PO PRN (15:55)
[2018-06-07] MEDS ORDERED: ACETAMINOPHEN 325 MG TABLET (FP) PO PRN (15:55)
[2018-06-07] MEDS ORDERED: guaiFENesin 200 MG/10 ML 10 ML UNIT-DOSE CUPS PO PRN (15:55)
[2018-06-07] MEDS ORDERED: MAG HYDROX/AL HYDROX/SIMETH 30 ML UNIT-DOSE CUP PO PRN (15:55)
[2018-06-07] MEDS ORDERED: MAGNESIUM HYDROX 2400MG/30ML ORAL SUSPENSION 30 ML CUP PO PRN (15:55)
[2018-06-07] MEDS ORDERED: hydrOXYzine PAMOATE 50 MG CAPSULE (FP) PO PRN (15:55)
[2018-06-07] MEDS ORDERED: MAGNESIUM CITRATE 300 ML BOTTLE PO PRN (15:55)
[2018-06-07] MEDS ORDERED: IBUPROFEN 400 MG TABLET (FP) PO PRN (15:55)
--- NOTE | 2018-06-07 15:58 | HP ---
[facility] Rehab Assess/Revision - Admission History Admitted to Rehab from: [facility] - Findings Detox History & Physical reviewed: Yes Concur with findings: Yes Inpatient Rehab Admission - Rehab Decision to Admit Inpatient rehab admission?: Yes - Initial Determination Are CD services needed?: Yes Free of communicable disease: Yes Not in need of hospitalization: Yes - Rehab Admission Criteria Previous failed treatment: Yes Poor recovery environment: Yes Comorbidities: Yes Lacks judgement: Yes Patient is meeting Inpatient Rehab admission criteria:: Yes
[2018-06-07] MEDS: THIAMINE HCL 100 MG TABLET (FP) PO SCH (21:07)
[2018-06-07] MEDS: LABETALOL HCL 100 MG TABLET (FP) PO SCH (21:07)
[2018-06-07] MEDS: MELATONIN 5 MG TABLETS PO PRN (21:08)
[2018-06-08] MEDS ORDERED: NICOTINE 21 MG/24 HOURS TOPICAL PATCH TD SCH (10:00)
[2018-06-08] MEDS ORDERED: amLODIPine BESYLATE 10 MG TABLET (FP) PO SCH (10:00)
[2018-06-08] MEDS ORDERED: LISINOPRIL 20 MG TABLET (FP) PO SCH (10:00)
[2018-06-08] MEDS ORDERED: ASPIRIN 81 MG CHEWABLE TABLETS PO SCH (10:00)
[2018-06-08] MEDS ORDERED: HYDROCHLOROTHIAZIDE 25 MG TABLET (FP) PO SCH (10:00)
[2018-06-08] MEDS ORDERED: PRENATAL VITAMINS W/ FOLIC ACID TABLET (FP) PO SCH (10:00)
[2018-06-08] MEDS: LABETALOL HCL 100 MG TABLET (FP) PO SCH ×2 (10:21→22:21)
[2018-06-08] MEDS: THIAMINE HCL 100 MG TABLET (FP) PO SCH (22:21)
[2018-06-08] MEDS: MELATONIN 5 MG TABLETS PO PRN (22:21)
[2018-06-09 07:30] VITALS: BP 155/89; PULSE 72; TEMP 98.1
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
--- NOTE | 2018-06-09 08:31 | PN ---
[facility] Progress Note Note: patient does not want to continue rehab treatment.the risk of relapsing is high, explained to patient, he understood,all attempts to convince patient to stay with no avail,he stated he feel much better and would like to go home and follow up with out patient program,Dr.Jean Roa appreciated, patient has no suicidal,no homicidal,has all medications at home and has refill prescriptions, signed release against medical advice,left the unit in good and stable condition
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
== END 2018-06-09 08:15 | disposition left against medical advice (07) | DRG 770 ==
LOC: YASAS 15:21 → Y3W 15:22
PROVIDERS: ADMIT Neuromusculoskeletal Medicine & OMM; ATTEND Neuromusculoskeletal Medicine & OMM
PROC: HZ42ZZZ Group Counseling for Substance Abuse Treatment, Cognitive-Behavioral (ICD-10-PCS; principal; 2018-06-07)
DX: F11.20 Opioid dependence, uncomplicated (principal); F10.20 Alcohol dependence, uncomplicated; F14.20 Cocaine dependence, uncomplicated; F17.210 Nicotine dependence, cigarettes, uncomplicated; F25.9 Schizoaffective disorder, unspecified; G40.909 Epilepsy, unspecified, not intractable, without status epilepticus; I10 Essential (primary) hypertension; H54.40 Blindness, one eye, unspecified eye; M54.5 Low back pain; G89.29 Other chronic pain; Z91.013 Allergy to seafood; Z88.8 Allergy status to other drugs, medicaments and biological substances